=== PATIENT | male | born 1990 | race Caucasian/White ===

== ENCOUNTER 2018-07-17 17:20 | Emergency (ER) | payer SELFPAY ==
[2018-07-17 17:29] VITALS: BP 144/101; PULSE 80; RESP 18; TEMP 36.4; O2SAT 95; BMI 31.8
--- NOTE | 2018-07-17 17:48 | HMH.EDGENADL ---
ED Disposition Clinical Impression: Chest wall pain, Right upper quadrant pain Disposition: Home, Self-Care Condition on Discharge: Good Instructions: DI for Abdominal Pain-Adult Additional Instructions: Follow-up with your primary care provider for an outpatient gallbladder ultrasound. Ibuprofen or Aleve for pain. Additional instructions regarding BLOOD PRESSURE: One or more of your blood pressure readings elevated today. Please contact your primary care physician for further evaluation or treatment of your blood pressure. Referrals: Provider,Referral, [Referring] - - Critical Care Critical Care Time: No Attestation: On , the high probability of a clinically significant, sudden or life threatening deterioration of the following system(s) required my full and direct attention, intervention and personal management. The time I documented below is in addition to time spent performing reported procedures but includes the following listed in this critical care notation. Medical Decision Making - Nick Inquiry Pt receiving controlled substance: No Nick was queried for this patient: Yes Reference #:: [id number] Comment: 1 rx for 40 oxycodone 5mg on 05/29/18 Vital Signs: 07/17/18 17:29 07/17/18 19:04 Temperature 97.5 F L Temperature Source Oral Pulse Rate [Right Apical] 80 78 Respiratory Rate 18 Blood Pressure [Right Arm] 144/101 H 133/96 H Blood Pressure Mean [Right Arm] 115 108 02 Sat by Pulse Oximetry 95 96 Oxygen Delivery Method Room Air - Lab Data Lab Results 07/17/18 16:40: WBC 8.1, RBC 5.77, Hgb 17.1, Hct 49.7, MCV 86.2, MCH 29.6, MCHC 34.3, RDW 12.7, Plt Count 242, MPV 6.8 L, Neut % (Auto) 68.2, Lymph % (Auto) 23.0, [place] % (Auto) 6.1, Eos % (Auto) 2.0, Baso % (Auto) 0.7, Neut # (Auto) 5.5, Lymph # (Auto) 1.9, [place] # (Auto) 0.5, Eos # (Auto) 0.2, Baso # (Auto) 0.1 07/17/18 16:40: Sodium 135 L, Potassium 3.8, Chloride 100, Carbon Dioxide 28, Anion Gap 10.8, BUN 12, Creatinine 1.16, Estimated Creat Clear 137, Estimated GFR 74, Est GFR ( Amer) 90, Glucose 95, Calcium 9.0, Total Bilirubin 0.7, AST 64 H, ALT 172 H, Alkaline Phosphatase 74, Total Protein 8.0, Albumin 4.2, Globulin 3.8 H, Albumin/Globulin Ratio 1.1 07/17/18 16:40: D-Dimer < 100 07/17/18 16:40: Lipase 65 L Result diagrams: 07/17/18 16:40 07/17/18 16:40 Orders (Tests/Meds): ORDERS Category Date Time Status Chest XR 2 view (NOT portable) [XR chest 2V] Stat Exams 07/17/18 18:02 Taken - Radiology Data #1 Image(s): Chest Image Reviewed: Yes I reviewed the patient's radiology image Preliminary Findings: Normal/NAD General Adult HPI - General Chief complaint: Abdominal Pain Stated complaint: Right Side Pain below rib cage Time Seen by Provider: 07/17/18 17:48 Mode of Arrival: Ambulatory Limitations: No Limitations Description of Symptoms (Recalled from ER Triage Doc. by RN): PT arrived to the ED with c/o RT rib/abdominal pain since labrym surgery in may. PT states he has a hx of liver problems and is worried about that. - History of Present Illness HPI narrative: Complains of pain in his right lateral and anterior costal margin that began after he had right shoulder surgery as an outpatient on 05/29/2018. States that also since surgery his chronic abdominal problems, which consist of bloating, loose stool, and diarrhea for the past 2 years, have worsened. Normally he can control his abdominal symptoms with probiotics, but now cannot. He has never had gallbladder testing to his knowledge. He says he does have a history of a fatty liver and elevated liver enzymes. He is concerned about his liver because of this past history. He says he gets short of breath when he bends over to tie his shoes. Sometimes has increased pain in the right costal margin with breath. No fever or cough. No vomiting. He is getting physical therapy for his shoulder, he says his physical therapist thinks that it is a muscula
[2018-07-17 17:53] LABS: Basophils # 0.1 K/mm3 (0-0.2); Basophils % 0.7 % (0.1-2.0); Eosinophils # 0.2 K/mm3 (0.0-0.4); Hematocrit 49.7 % (42.0-52.0); Hemoglobin 17.1 g/dL (14.1-18.0); Lymphocytes # 1.9 K/mm3 (0.7-4.5); Mean Corpuscular HGB Conc 34.3 g/dL (31.8-35.4); Mean Corpuscular Hemoglobin 29.6 pg (27.0-31.2); Mean Corpuscular Volume 86.2 fl (80-94); Mean Platelet Volume 6.8 fl (7.4-10.4); Monocytes # 0.5 K/mm3 (0.1-1.0); Monocytes % 6.1 % (1.7-9.3); Neutrophils # 5.5 K/mm3 (1.8-7.8); Neutrophils % 68.2 % (37.0-80.0); Platelet Count 242 K/mm3 (142-424); Red Blood Count 5.77 M/mm3 (4.60-6.20); Red Cell Distribution Width 12.7 % (11.5-17.5); White Blood Count 8.1 K/mm3 (4.8-10.8)
[2018-07-17 18:01] LABS: Alanine Aminotransferase 172 U/L (12-78); Albumin Level 4.2 gm/dL (3.4-5.0); Albumin/Globulin Ratio 1.1 (1.1-1.8); Alkaline Phosphatase 74 U/L (46-116); Anion Gap 10.8 mEq/L (5-15); Aspartate Amino Transferase 64 U/L (15-37); Bilirubin,Total 0.7 mg/dL (0.2-1.0); Blood Urea Nitrogen 12 mg/dL (7-18); Carbon Dioxide 28 mmol/L (21.0-32.0); Chloride 100 mmol/L (98-107); Creatinine Clearance Estimated 137 mL/min (50-200); Creatinine,Serum 1.16 mg/dL (0.70-1.30); Estimated Glomerular Filt Rate 74 ml/min (>60); GFR (African American) 90 ML/MIN (>60); Globulin 3.8 gm/dl (1.3-3.2); Glucose 95 mg/dL (74-106); Potassium 3.8 mmoL/L (3.5-5.1); Sodium 135 mmol/L (136-145)
--- NOTE | 2018-07-17 18:02 | XR_ITS ---
XR chest 2V HISTORY: ITS.REASON: R costal margin pain ORDERING PHYSICIAN: Raymond Hathaway MD PATIENT AGE: 28 years COMPARISON: PA and lateral chest 10/22/2010 FINDINGS: The cardiomediastinal silhouette and pulmonary vascularity are within normal limits. The lungs are clear without infiltrates, suspicious nodules, or pleural effusions. No acute bony abnormalities. IMPRESSION: Negative chest, no acute finding
[2018-07-17 18:30] LABS: D-Dimer < 100 ng/mL (0-400)
[2018-07-17 18:47] LABS: Lipase 65 u/L (73-393)
[2018-07-17 19:04] VITALS: BP 133/96; PULSE 78; O2SAT 96
[2018-07-17 20:16] VITALS: BP 135/93; PULSE 79; RESP 18; TEMP 36.6; O2SAT 96
== END 2018-07-17 20:15 | disposition home or self-care (01) ==
PROVIDERS: Emergency Provider Emergency Medicine; PCP Physician Assistant
DX: R07.89 Other chest pain (principal); R10.11 Right upper quadrant pain
CPT/HCPCS: 71046; 80053; 83690; 85025; 85378; 99283

== ENCOUNTER → 2019-04-06 13:31 | Outpatient (CLI) | payer BC, SELFPAY ==
--- NOTE | 2019-04-06 13:35 | ECG_ITS ---
APPROVED REPORT Exam: Resting ECG HR:56 bpm ECG Measurements Heart Rate 56 AXES ME 158 P 26 QRSd 114 QRS -25 QT 404 T 1 QTc 389 <Conclusion> Sinus bradycardia Moderate voltage criteria for LVH, may be normal variant Borderline ECG Electronically signed by : Castro Gaines, 04/06/2019 20:56:19
[2019-04-06 15:18] LABS: C-Reactive Protein < 0.2 mg/dL (0.0-0.9); Cholesterol 170 mg/dL (140-200); HDL Cholesterol 42 mg/dL (27-67); LDL Cholesterol 115 mg/dL (0-130); Thyroid Stimulating Hormone 1.76 uIU/ml (0.358-3.740); Triglycerides 63 mg/dL (30-200); VLDL Cholesterol 13 mg/dL (0-40)
[2019-04-06 16:05] LABS: Erythrocyte Sedimentation Rate 4 mm/hr (0-15)
== END ==
PROVIDERS: PCP Emergency Medicine; Visit Provider Nurse Practitioner Family
DX: M54.9 Dorsalgia, unspecified (principal); R07.9 Chest pain, unspecified; R12 Heartburn
CPT/HCPCS: 36415; 80061; 82652; 84439; 84443; 85651; 86140; 93005

== ENCOUNTER → 2019-04-27 12:45 | Outpatient (CLI) | payer BC, SELFPAY ==
--- NOTE | 2019-04-27 12:46 | CA_ITS ---
APPROVED REPORT EXAM: Comprehensive 2D, Doppler, and color-flow Echocardiogram Distribution Agent: Kendra Caicedo RT(R) Ht: 5 ft 11 in Wt: 229lbs BSA: 2.23 BP: 151/73 mmHg Indications: SOA, CP, Hyperlipidemia 2D Dimensions LVOT 2.18 cm (M/F) 1.5-2.5 M-Mode Dimensions RVDd 3.05 cm (0.9-2.6) LVDd 5.11 cm (3.5-5.7) LVDs 3.74 cm (3.5-5.7) IVSd 0.76 cm (0.6-1.1) PWd 0.76 cm (0.6-1.1) EF (Teich) 52.10% FS 26.80% EDV (Teich) 124.40 mL ESV (Teich) 59.60 mL LV Diastology E/A Ratio 2.22 Mitral Valve MV A Velocity 39.00 (40-130 cm/s) Left Ventricle Left atrium is normal size, left ventricle is normal size, there is no concentric left ventricular hypertrophy, visually estimated ejection fraction 55% with no regional wall motion abnormality, diastolic parameters are within normal limits. Right Ventricle Right atrium right ventricular normal size and contractility. Aortic Valve Aortic valve is normal, there is no aortic stenosis aortic insufficiency. Mitral Valve Mitral valve is grossly normal. There is trace mitral regurgitation. Tricuspid Valve Tricuspid valve grossly normal, there is mild tricuspid regurgitation, calculated right ventricular systolic pressure is within normal range. Pulmonic Valve Pulmonic valve is poorly visualized. Great Vessels Aortic root is normal size. Pericardium No significant pericardial effusion noted. Conclusion 1. Normal left ventricular size, preserved left ventricular systolic function, visually estimated ejection fraction 55% with no regional wall motion abnormality, diastolic parameters are within normal range. 2. Mild mitral and tricuspid regurgitation. Calculated right ventricular systolic pressure is within normal range. 3. No significant pericardial effusion noted. Electronically signed by : Geo Starkey, 04/27/2019 20:42:55
--- NOTE | 2019-04-27 13:19 | CT_ITS ---
PROCEDURE: CT CHEST W CON CLINCAL INDICATION: cp/dyspnea Chest pain and dyspnea, pain between the scapula with shortness of air COMPARISON: ABDPELW/WO CT ABD PELVIS W/WO CONTRAST from 10/25/2015 CT ABDOMEN PELVIS W CON from 11/21/2018 TECHNIQUE: IV Contrast: 75ml Optiray 350 Axial images obtained with sagittal and coronal reformats. All CT scans at the facility use one or more dose reduction, viz: automated exposure control, ma/kV adjustment per patient size (including targeted exams where dose is matched to indication, i.e. head), or iterative reconstruction technique. FINDINGS: HEART,AORTA,PULMONARY ARTERIES Unremarkable. MEDIASTINAL AND HILAR STRUCTURES: No mediastinal or hilar mass evident. No dominant adenopathy. LUNGS: Unremarkable. No mass or consolidation. PLEURAL SPACES: No significant effusion. No evidence of pneumothorax. BONY STRUCTURES: No acute bony abnormalities apparent. LYMPH NODES: No enlarged lymph nodes evident. UPPER ABDOMEN: There is diffuse fatty liver infiltration. There is mild splenomegaly at 14 cm. There is scarring of the upper pole of the right kidney laterally. ADDITIONAL FINDINGS: No other significant abnormalities. IMPRESSION: 1. Negative CT scan of the chest. 2. Fatty liver with mild splenomegaly and scarring of the upper pole of the right kidney Dictated by: Pilo Valdez MD 04/27/2019 17:26 Electronically signed by Pilo Valdez MD in [facility] 04/27/2019 17:26
== END ==
PROVIDERS: PCP Emergency Medicine; Visit Provider Nurse Practitioner Family
DX: I71.00 Dissection of unspecified site of aorta (principal); R06.00 Dyspnea, unspecified; R07.9 Chest pain, unspecified; R94.31 Abnormal electrocardiogram [ECG] [EKG]
CPT/HCPCS: 71260; 93306; Q9967

== ENCOUNTER → 2020-04-06 16:58 | Outpatient (CLI) | payer BC, SELFPAY | PROVIDERS: PCP Physician Assistant; Visit Provider Physician Assistant | DX: Z03.818 Encounter for observation for suspected exposure to other biological agents ruled out (principal) | CPT/HCPCS: U0003 ==

== ENCOUNTER 2020-05-23 12:31 | Emergency (ER) | payer BC, SELFPAY ==
[2020-05-23 12:32] VITALS: BP 112/75; PULSE 72; RESP 16; TEMP 36.6; O2SAT 98; BMI 31.4
--- NOTE | 2020-05-23 12:55 | CT_ITS ---
PROCEDURE: CT THORACIC SPINE WO CON CLINICAL HISTORY: fall Posttraumatic pain, back pain COMPARISON: No exams were available for comparison TECHNIQUE: Axial images obtained with sagittal and coronal reformats. All CT scans at the facility use one or more dose reduction, viz: automated exposure control, ma/kV adjustment per patient size (including targeted exams where dose is matched to indication, i.e. head), or iterative reconstruction technique. FINDINGS: Normal alignment. No acute fracture or dislocation. Mild degenerative disc disease T4-T5 with small anterior osteophytes. IMPRESSION: No acute finding Dictated by: Pilo Valdez MD 05/23/2020 13:40 Pilo Valdez MD in [facility] 05/23/2020 13:40
--- NOTE | 2020-05-23 12:55 | CT_ITS ---
PROCEDURE: CT CERVICAL SPINE WO CON CLINICAL INDICATION: fall Neck injury with pain, contusion/abrasion or hematoma, cervical sprain/strain the COMPARISON: No exams were available for comparison TECHNIQUE: Axial images obtained with sagittal and coronal reformats. All CT scans at the facility use one or more dose reduction, viz: automated exposure control, ma/kV adjustment per patient size (including targeted exams where dose is matched to indication, i.e. head), or iterative reconstruction technique. Axial spiral CT scanning performed of the cervical spine beginning at the base of the skull and continuing to the upper T-spine. 3-D multiplanar reconstruction with 3-D manipulation of volumetric data set in image rendering was completed by the radiologist and/or technologist with the supervision of the radiologist on independent workstation. FINDINGS: There is normal alignment. No acute fracture or dislocation. C2-C3: Unremarkable. C3-C4: Unremarkable. C4-C5: Small central disc protrusion. C5-C6: Mild degenerative disc disease with endplate ridging slightly eccentric toward the right. C6-C7: Mild degenerative disc disease with small left paracentral disc osteophyte complex the. Scattered small nodes are present in the neck. Lung apices are clear. IMPRESSION: 1. No acute fracture. 2. C4-C5: Small central disc protrusion. 3. C5-C6: Mild degenerative disc disease with endplate ridging slightly eccentric toward the right. 4. C6-C7: Mild degenerative disc disease with small left paracentral disc osteophyte complex Dictated by: Pilo Valdez MD 05/23/2020 13:36 Pilo Valdez MD in [facility] 05/23/2020 13:36
--- NOTE | 2020-05-23 13:37 | HMH.EDGENADL ---
ED Disposition Clinical Impression: Strain of thoracic spine, Degenerative disc disease, cervical Cervical strain, acute Qualifiers: Encounter type: initial encounter Qualified Code(s): S16.1XXA - Strain of muscle, fascia and tendon at neck level, initial encounter Disposition: Home, Self-Care Condition on Discharge: Good Instructions: DI for Neck Sprain, DI for Degenerative Disc Disease, DI for Thoracic Back Pain Additional Instructions: Ibuprofen for pain. Apply heat 20 to 30 minutes 3 times a day as needed. Follow-up with your primary care doctor if not improved in 4 to 5 days. Referrals: Belkis Sharp PA [Primary Care Provider] - - Critical Care Critical Care Time: No Attestation: On 05/23/20, the high probability of a clinically significant, sudden or life threatening deterioration of the following system(s) required my full and direct attention, intervention and personal management. The time I documented below is in addition to time spent performing reported procedures but includes the following listed in this critical care notation. Medical Decision Making - Nick Inquiry Pt receiving controlled substance: No Vital Signs: 05/23/20 12:32 Temperature 97.9 F Temperature Source Oral Pulse Rate [Left Radial] 72 Respiratory Rate 16 Blood Pressure [Left Arm] 112/75 Blood Pressure Mean [Left Arm] 87 Blood Pressure Source [Left Arm] Automatic Cuff Blood Pressure Position [Left Arm] Sitting 02 Sat by Pulse Oximetry 98 Oxygen Delivery Method Room Air - CT Data CT Scan: C-Spine, T-Spine Time Received: 13:[address] Reviewed: Yes: I have viewed the radiologist's interpretation Findings Narrative: PROCEDURE: CT THORACIC SPINE WO CON CLINICAL HISTORY: fall Posttraumatic pain, back pain COMPARISON: No exams were available for comparison TECHNIQUE: Axial images obtained with sagittal and coronal reformats. All CT scans at the facility use one or more dose reduction, viz: automated exposure control, ma/kV adjustment per patient size (including targeted exams where dose is matched to indication, i.e. head), or iterative reconstruction technique. FINDINGS: Normal alignment. No acute fracture or dislocation. Mild degenerative disc disease T4-T5 with small anterior osteophytes. IMPRESSION: No acute finding Dictated by: Pilo Valdez MD 05/23/2020 13:40 Pilo Valdez MD in [facility] 05/23/2020 13:40 PROCEDURE: CT CERVICAL SPINE WO CON CLINICAL INDICATION: fall Neck injury with pain, contusion/abrasion or hematoma, cervical sprain/strain the COMPARISON: No exams were available for comparison TECHNIQUE: Axial images obtained with sagittal and coronal reformats. All CT scans at the facility use one or more dose reduction, viz: automated exposure control, ma/kV adjustment per patient size (including targeted exams where dose is matched to indication, i.e. head), or iterative reconstruction technique. Axial spiral CT scanning performed of the cervical spine beginning at the base of the skull and continuing to the upper T-spine. 3-D multiplanar reconstruction with 3-D manipulation of volumetric data set in image rendering was completed by the radiologist and/or technologist with the supervision of the radiologist on independent workstation. FINDINGS: There is normal alignment. No acute fracture or dislocation. C2-C3: Unremarkable. C3-C4: Unremarkable. C4-C5: Small central disc protrusion. C5-C6: Mild degenerative disc disease with endplate ridging slightly eccentric toward the right. C6-C7: Mild degenerative disc disease with small left paracentral disc osteophyte complex the. Scattered small nodes are present in the neck. Lung apices are clear. IMPRESSION: 1. No acute fracture. 2. C4-C5: Small central disc protrusion. 3. C5-C6: Mild degenerative disc disease with endplate ridging slightly eccentric toward the right. 4. C6-C7: Mild
[2020-05-23 14:05] VITALS: BP 115/70; PULSE 78; RESP 16; TEMP 37; O2SAT 98
== END 2020-05-23 14:07 | disposition home or self-care (01) ==
PROVIDERS: Emergency Provider Emergency Medicine; PCP Physician Assistant
DX: S29.012A Strain of muscle and tendon of back wall of thorax, initial encounter (principal); S16.1XXA Strain of muscle, fascia and tendon at neck level, initial encounter; W00.0XXA Fall on same level due to ice and snow, initial encounter; Y92.018 Other place in single-family (private) house as the place of occurrence of the external cause; K21.9 Gastro-esophageal reflux disease without esophagitis; I10 Essential (primary) hypertension; Z88.0 Allergy status to penicillin; Z79.899 Other long term (current) drug therapy
CPT/HCPCS: 72125; 72128; 99282

== ENCOUNTER 2020-11-22 10:41 | Emergency (ER) | payer BC, SELFPAY ==
[2020-11-22 12:16] VITALS: BP 139/91; PULSE 67; RESP 16; TEMP 36.7; O2SAT 100; BMI 31.4
--- NOTE | 2020-11-22 12:19 | HMH.EDUTC ---
[facility] [place] [facility] [place] Clinical Impression: Exposure to COVID-19 virus Disposition: Home, Self-Care Condition on Discharge: Good Instructions: DI for COVID-19 (Suspected or Confirmed ), Coronavirus Disease 2019, Preventing the Spread of Coronavirus Discharge Instructions Additional Instructions: *Monitor Temp, Over the counter Motrin or Tylenol as directed/as needed Tylenol every 4 hours and Motrin every 6 hours (as long as your family doctor has told you that you can take it) for fever or pain. and straight to ER if unable to lower temp less than 101.0 after medication given Follow up IMMEDIATELY for new or worsening symptoms or no Noticeable improvement over the next 48-72 hours. 911 for difficulty breathing or swallowing You were tested for today for COVID19 your test result should be back in the next 24-48 hours, you may call to the [facility] to see if your test results are back in the next 48 hours [phone] [facility] hours are 9am-9pm You was given a handout with instructions for Self Quarantine and Self isolation for while you wait on test results and what to do if they are positive If you are positive the Health Dept will be contacting you also Make sure to take your Vitamins Vit. C Vit D and Zinc if you can take them Referrals: Belkis Sharp PA [Primary Care Provider] - As needed Forms: Work/School Release Time of Disposition: 12:33 Medical Decision Making - Nick Inquiry Pt receiving controlled substance: No Nick was queried for this patient: No Vital Signs: 11/22/20 12:16 Temperature 98.1 F Temperature Source Oral Pulse Rate [Left] 67 Respiratory Rate 16 Blood Pressure [Right Arm] 139/91 H Blood Pressure Mean [Right Arm] 107 02 Sat by Pulse Oximetry 100 Orders (Tests/Meds): ORDERS Category Date Time Status Covid-19 Nasal PCR ([facility]) Routine Lab 11/22/20 12:03 Received [facility] [place] [facility] [place] HPI - General Stated complaint: covid exposure Time Seen by Provider: 11/22/20 12:20 Mode of Arrival: Ambulatory Source of Information: Patient Limitations: No Limitations Description of Symptoms (Recalled from Triage Doc. by RN): pt was exposed to covid at work and needs a test. HEENT Symptoms (Recalled from RN notes): No Resp Symptoms (Recalled from RN notes): No Skin Symptoms (Recalled from RN notes): No MS Symptoms (Recalled from RN notes): No Functional Status (Recalled from RN notes): na - History of Present Illness Provider Complaint: Patient state that he was exposed to several people last week that has tested positive for COVID States that he has had a little throat irritation and just feeling blah so they wanted him to come in and get tested for COVID - Related Data Home Medications Medication Instructions Recorded Confirmed lactobacillus combination no.8 3 3,000 mmu cells PO DAILY 04/15/19 09/15/20 billion cell capsule Previous Rx's Medication Instructions Recorded ergocalciferol (vitamin D2) 1,250 50,000 unit PO QWEEK #4 cap 04/09/19 mcg (50,000 unit) capsule omeprazole 40 mg capsule,delayed 40 mg PO DAILY #90 cap 04/15/19 release amoxicillin 500 mg tablet 500 mg PO BID 10 Days #20 tab 09/15/20 cetirizine 10 mg tablet 10 mg PO DAILY #30 tab 09/15/20 Allergies Allergy/AdvReac Type Severity Reaction Status Date / Time cefaclor [From Ceclor] Allergy Mild Verified 11/22/20 12:20 cefprozil [From Cefzil] Allergy Mild Verified 11/22/20 12:20 Penicillins Allergy Mild Verified 11/22/20 12:20 - Worker's Comp Is this a Worker's Comp case?: No [facility] History - Hepatitis A Screen Drug use history?: No High risk sexual behaviors?: No History of sexually transmitted infection?: No Currently employed?: No Childcare worker?: No Do you have indoor plumbing?: Yes Do you have electricity?: Yes Attestation statement:: This patient has been screened for Hepatitis A risk factors. I have reviewed the patient's past medical history: Yes Medical History: Reports:: Gastroesophageal R
[2020-11-22 12:56] VITALS: BP 0/0; PULSE 69; RESP 16; TEMP 36.8
== END 2020-11-22 12:56 | disposition home or self-care (01) ==
PROVIDERS: Emergency Provider Nurse Practitioner; PCP Physician Assistant
DX: Z20.822 Contact with and (suspected) exposure to COVID-19 (principal); I10 Essential (primary) hypertension; K21.9 Gastro-esophageal reflux disease without esophagitis
CPT/HCPCS: 99202; G0463; U0003

== ENCOUNTER → 2020-12-12 18:35 | Outpatient (CLI) | payer OTHER, SELFPAY | PROVIDERS: Visit Provider Physician Assistant | DX: Z20.822 Contact with and (suspected) exposure to COVID-19 (principal) | CPT/HCPCS: C9803; U0003; U0005 ==

== ENCOUNTER → 2020-12-25 17:45 | Outpatient (CLI) | payer OTHER, SELFPAY | PROVIDERS: Visit Provider Nurse Practitioner Family | DX: Z20.822 Contact with and (suspected) exposure to COVID-19 (principal); J02.9 Acute pharyngitis, unspecified | CPT/HCPCS: C9803; U0003; U0005 ==

== ENCOUNTER → 2020-12-28 10:04 | Outpatient (CLI) | payer SELFPAY ==
[2020-12-28 10:26] LABS: Adenovirus,PCR Not Detected (NotDetected); Bordetella Pertussis Not Detected (NotDetected); Chlamydophila Pneumoniae, PCR Not Detected (NotDetected); Coronavirus 19, PCR Not Detected (NotDetected); Coronavirus 229E Not Detected (NotDetected); Coronavirus NL63 Not Detected (NotDetected); Coronavirus OC43 Not Detected (NotDetected); Coronovirus HKU1,PCR Not Detected (NotDetected); Human Metapneumovirus Not Detected (NotDetected); Influenza A, PCR Not Detected (NotDetected); Influenza AH1, 2009 Not Detected (NotDetected); Influenza AH1, PCR Not Detected (NotDetected); Influenza AH3,PCR Not Detected (NotDetected); Influenza B, PCR Not Detected (NotDetected); Mycoplasma Pneumoniae, PCR Not Detected (NotDetected); Parainfluenza 1, PCR Not Detected (NotDetected); Parainfluenza 2, PCR Not Detected (NotDetected); Parainfluenza 3, PCR Not Detected (NotDetected); Parainfluenza 4, PCR Not Detected (NotDetected); Rhinovirus/Enterovirus Not Detected (NotDetected)
[2020-12-28 15:35] LABS: Respiratory Syncytial Virus Detected (NotDetected)
== END ==
PROVIDERS: PCP Nurse Practitioner Family; Visit Provider Nurse Practitioner Family
DX: Z20.822 Contact with and (suspected) exposure to COVID-19 (principal); B97.4 Respiratory syncytial virus as the cause of diseases classified elsewhere; J02.9 Acute pharyngitis, unspecified
CPT/HCPCS: 87581; 87632; 87798; C9803; U0003; U0005

== ENCOUNTER → 2021-04-07 11:22 | Outpatient (CLI) | payer OTHER, SELFPAY | PROVIDERS: PCP Physician Assistant; Visit Provider Nurse Practitioner | DX: Z20.822 Contact with and (suspected) exposure to COVID-19 (principal) | CPT/HCPCS: C9803; U0003; U0005 ==

== ENCOUNTER → 2021-04-11 11:12 | Outpatient (CLI) | payer OTHER, SELFPAY | PROVIDERS: Visit Provider Nurse Practitioner | DX: U07.1 COVID-19 (principal) | CPT/HCPCS: C9803; U0003; U0005 ==

== ENCOUNTER 2021-10-12 11:59 | Emergency (ER) | payer BC, SELFPAY ==
--- NOTE | 2021-10-12 12:04 | XR_ITS ---
FINAL REPORT CLINICAL HISTORY: pain started 3 days ago FINDINGS: 3 views of the right shoulder were obtained. There is no acute fracture or dislocation. The joint spaces are intact. There are no soft tissue abnormalities. IMPRESSION: No acute process. Reviewed, Interpreted and Dictated by Lowell Alcocer MD Transcribed by Luis E Griffith Authenticated and [facility]
[2021-10-12 12:25] VITALS: BP 139/94; PULSE 61; RESP 16; TEMP 36.4; O2SAT 99; BMI 30.7
--- NOTE | 2021-10-12 12:47 | HMH.EDUTC ---
[facility] [place] Disposition Clinical Impression: shoulder Right shoulder pain Qualifiers: Chronicity: acute Qualified Code(s): M25.511 - Pain in right shoulder Concussion Qualifiers: Encounter type: initial encounter Loss of consciousness presence/duration: without LOC Qualified Code(s): S06.0X0A - Concussion without loss of consciousness, initial encounter Disposition: Home, Self-Care Condition on Discharge: Good Instructions: DI for Concussion, Shoulder Sprain, Concussion, DI for AC Joint Separation Additional Instructions: Rest the extremity. Take tylenol for pain. Follow up with Dr. Weinstein (orthopedics) or your orthopedist of choice regarding your shoulder. I put in a referral but you need to call his office and schedule an appointment. Follow up with your regular doctor. GO TO THE ER FOR ANY WORSENING SYMPTOMS Referrals: Provider,MD Luis [Primary Care Provider] - Landon Weinstein MD [Staff Physician] - Forms: Work/School Release Time of Disposition: 12:51 Medical Decision Making - Medical Records Medical records reviewed: No: I reviewed the patient's medical records. - Nick Inquiry Pt receiving controlled substance: No Vital Signs: 10/12/21 12:25 10/12/21 13:04 Temperature 97.6 F 97.6 F Temperature Source Oral Pulse Rate 61 Pulse Rate [Left] 61 Respiratory Rate 16 16 Blood Pressure 139/94 H Blood Pressure [Right Arm] 139/94 H Blood Pressure Mean [Right Arm] 109 02 Sat by Pulse Oximetry 99 - Lab Data Lab results reviewed: Yes: I reviewed the patient's lab results. - Radiology Data #1 Image(s): Shoulder Image Reviewed: Yes I reviewed the patient's radiology image, Yes I have reviewed radiologist's interpretation Preliminary Findings: No Fracture Seen FINAL REPORT CLINICAL HISTORY: pain started 3 days ago FINDINGS: 3 views of the right shoulder were obtained. There is no acute fracture or dislocation. The joint spaces are intact. There are no soft tissue abnormalities. IMPRESSION: No acute process. Reviewed, Interpreted and Dictated by Lowell Alcocer MD Transcribed by Luis E Griffith Authenticated and [facility] HPI - General Stated complaint: ao 10/10, h/a, right shoulder pain Time Seen by Provider: 10/12/21 12:47 Description of Symptoms (Recalled from Triage Doc. by RN): patient comes in for headache. patient was mowing 2 days ago and ran into a tree branch. patient states that he has had a headache since then. HEENT Symptoms (Recalled from RN notes): Yes Resp Symptoms (Recalled from RN notes): No Skin Symptoms (Recalled from RN notes): No MS Symptoms (Recalled from RN notes): No Functional Status (Recalled from RN notes): n/a - History of Present Illness Provider Complaint: He was mowing when when he bumped his head on a low tree branch. This pushed him back and caused him to start having right shoulder pain. He has also had a headache for the past 2 days since the incident. - Related Data Home Medications Medication Instructions Recorded Confirmed lactobacillus combination no.8 3 3,000 mmu cells PO DAILY 04/15/19 12/25/20 billion cell capsule Previous Rx's Medication Instructions Recorded ergocalciferol (vitamin D2) 1,250 50,000 unit PO QWEEK #4 cap 04/09/19 mcg (50,000 unit) capsule omeprazole 40 mg capsule,delayed 40 mg PO DAILY #90 cap 04/15/19 release azithromycin 250 mg tablet 250 mg PO QDAY 5 Days #6 tab 12/26/20 Allergies Allergy/AdvReac Type Severity Reaction Status Date / Time cefaclor [From Ceclor] Allergy Mild Verified 10/12/21 12:27 cefprozil [From Cefzil] Allergy Mild Verified 10/12/21 12:27 Penicillins Allergy Mild Verified 10/12/21 12:27 - Worker's Comp Is this a Worker's Comp case?: No [facility] History - Hepatitis A Screen Attestation statement:: This patient has been screened for Hepatitis A risk
[2021-10-12 13:04] VITALS: BP 139/94; PULSE 61; RESP 16; TEMP 36.4
== END 2021-10-12 13:05 | disposition home or self-care (01) ==
PROVIDERS: Emergency Provider Nurse Practitioner Family
DX: S43.004A Unspecified dislocation of right shoulder joint, initial encounter (principal); S06.0X0A Concussion without loss of consciousness, initial encounter; Y93.H2 Activity, gardening and landscaping; Y92.096 Garden or yard of other non-institutional residence as the place of occurrence of the external cause
CPT/HCPCS: 73030; 99212; G0463

== ENCOUNTER 2022-02-19 08:50 | Emergency (ER) | payer BC, SELFPAY ==
[2022-02-19 09:00] VITALS: BP 136/84; PULSE 76; RESP 21; TEMP 37.1; O2SAT 97; BMI 31.6
--- NOTE | 2022-02-19 09:17 | EXP.UTC ---
Discharge Plan Disposition Patient Disposition: Home, Self-Care Condition: Good Prescriptions Prescriptions: New methylprednisolone [Medrol (Peter)] 4 mg tablets,dose pack See Rx Instructions .Route .COMPLEX 6 Days Qty: 21 0RF Rx Instructions: taper pack; guaifenesin [Mucinex] 600 mg tablet extended release 12hr 600 mg PO BID PRN (Reason: cough) Qty: 20 0RF azithromycin [Zithromax Z-Peter] 250 mg tablet See Rx Instructions .ROUTE .COMPLEX 5 Days Qty: 6 0RF Rx Instructions: For 250 mg dose pack: take 500 mg today (day 1), then 250 mg for 4 days (days 2-5) No Action omeprazole [Prilosec] 20 mg Capsule,Delayed Release(Dr/Ec) 20 mg PO DAILY Referrals Follow up/Referrals: Belkis Sharp PA [Primary Care Provider] - See instructions Activity Restrictions/Add. Instructions Additional Instructions/Restrictions: Take medication as prescribed. [id number] Motrin and Tylenol as directed on package for fever chills and body aches. Follow-up with your family doctor if no improvement or any worsening of symptoms Straight to ER if any life-threatening symptoms Drink plenty of fluids and rest Return if needed Clinical Impressions Clinical Impression: Bronchitis Sinusitis Qualifiers: Sinusitis location: unspecified location Chronicity: unspecified Qualified Code(s): J32.9 - Chronic sinusitis, unspecified Stand Alone Forms Stand Alone Forms: Work/School Release Instructions Patient Instructions: Sinusitis, Acute Bronchitis, DI for Sinusitis Discharge ED Provider: Jennifer Frias [facility] General Stated complaint: sore throat, cough Mode of Arrival: Ambulatory Source of Information: Patient Limitations: No Limitations Time Seen by Provider: 02/19/22 09:17 Description of Symptoms (Recalled from Triage Doc. by RN): PATIENT C/O SORE THROAT, PRODUCTIVE COUGH, FEVER AND BODY ACHES THAT STARTED FRIDAY NIGHT. HE STATES HIS SON HAD FLU LAST WEEK HEENT Symptoms (Recalled from RN notes): Yes Resp Symptoms (Recalled from RN notes): Yes Skin Symptoms (Recalled from RN notes): No MS Symptoms (Recalled from RN notes): No Functional Status (Recalled from RN notes): WNL History of Present Illness Provider Complaint: Patient states that on Friday he started feeling bad with fever chills and body aches states that then he started with cough chest congestion and at times coughing up thick mucus states today he was still not feeling well having sinus pain and pressure so he came in to get checked. Related Data Home Medications Medication Instructions Recorded Confirmed omeprazole 20 mg capsule,delayed 20 mg PO DAILY GERD 02/19/22 02/19/22 release Previous Rx's Medication Instructions Recorded azithromycin 250 mg tablet See Rx Instructions PO .COMPLEX 5 02/19/22 (Zithromax Z-Peter) days #6 tabs guaifenesin 600 mg tablet, 600 mg PO BID PRN cough #20 tabs 02/19/22 extended release 12 hr (Mucinex) methylprednisolone 4 mg tablets in See Rx Instructions .Route 02/19/22 a dose pack (Medrol (Peter)) .COMPLEX 6 days #21 tabs Allergies Allergy/AdvReac Type Severity Reaction Status Date / Time cefaclor [From Ceclor] Allergy Mild Verified 10/12/21 12:27 cefprozil [From Cefzil] Allergy Mild Verified 10/12/21 12:27 Penicillins Allergy Mild Verified 10/12/21 12:27 Worker's Comp Is this a Worker's Comp case?: No [facility] Medical History (Updated 02/19/22 @ 09:27 by Jennifer Frias APRN) Anxiety Depression History of gastroesophageal reflux (GERD) Migraine Surgical History (Updated 02/19/22 @ 09:12 by Le Horton RN) History of shoulder surgery History of tonsillectomy Social History (Updated 02/19/22 @ 09:13 by Le Horton RN) Smoking Status: Never smoker alcohol intake: current substance use type: denies use current occupational status: employed Travel in the last 8 weeks: None household members: family housing: [facility]
[2022-02-19 09:28] LABS: UTC Influenza A Antigen Negative (Negative); UTC Influenza B Antigen Negative (Negative); UTC Strep Screen (Rapid) Negative (Negative)
[2022-02-19 09:34] VITALS: BP 136/84; PULSE 76; RESP 21; TEMP 37.1; O2SAT 97
== END 2022-02-19 09:35 | disposition home or self-care (01) ==
PROVIDERS: Emergency Provider Nurse Practitioner; PCP Physician Assistant
DX: J40 Bronchitis, not specified as acute or chronic (principal); J32.9 Chronic sinusitis, unspecified
CPT/HCPCS: 87804; 87880; 99212; G0463

== ENCOUNTER 2022-06-24 09:43 | Emergency (ER) | payer BC, SELFPAY ==
[2022-06-24 10:15] VITALS: BP 131/97; PULSE 75; RESP 20; TEMP 36.8; O2SAT 98; BMI 30.9
--- NOTE | 2022-06-24 10:26 | EXP.UTC ---
Discharge Plan Disposition Patient Disposition: Home, Self-Care Condition: Good Prescriptions Prescriptions: New azithromycin [Zithromax Z-Peter] 250 mg tablet See Rx Instructions .ROUTE .COMPLEX 5 Days Qty: 6 0RF Rx Instructions: For 250 mg dose pack: take 500 mg today (day 1), then 250 mg for 4 days (days 2-5) benzonatate 100 mg capsule 100 mg PO TID PRN (Reason: cough) Qty: 30 0RF methylprednisolone [Medrol (Peter)] 4 mg tablets,dose pack See Rx Instructions .Route .COMPLEX 6 Days Qty: 21 0RF Rx Instructions: taper pack; No Action omeprazole [Prilosec] 20 mg Capsule,Delayed Release(Dr/Ec) 20 mg PO DAILY Referrals Follow up/Referrals: Provider,Referral, MD [Primary Care Provider] - See instructions Activity Restrictions/Add. Instructions Additional Instructions/Restrictions: *Monitor Temp, Over the counter Motrin or Tylenol as directed/as needed Tylenol every 4 hours and Motrin every 6 hours (as long as your family doctor has told you that you can take it) for fever or pain. and straight to ER if unable to lower temp less than 101.0 after medication given *Warm salt water gargles may help to soothe the throat *Throat Lozenges? *Warm fluids like tea with honey may help to soothe the throat? *Sleep elevated *Humidifier/Vaporizer *Flonase 2 sprays in each nostril daily but be aware that it may take 2-3 days before you notice improvement *Bromfed may cause drowsiness. Know how it effects you (your child) before driving, caring for small child, or sending your child to school. Not other antihistamines/allergy medications while taking bromfed Your throat swab was sent for culture. Those results are typically sent to your primary care. Be sure to follow up in 2-3 days with your family doctor/primary care physician if no improvement so they can review those result and treat if necessary. If you don?t have a primary care doctor, I recommend you get one but in the mean time, you will have to return to a walk in clinic Follow up IMMEDIATELY for new or worsening symptoms or no Noticeable improvement over the next 48-72 hours. 911 for difficulty breathing or swallowing Clinical Impressions Clinical Impression: Pharyngitis Stand Alone Forms Stand Alone Forms: Work/School Release Instructions Patient Instructions: Sore Throat, Cough Discharge ED Provider: [place] [facility] [place] General Stated complaint: Sore throat, congestion Time Seen by Provider: 06/24/22 10:26 History of Present Illness Provider Complaint: Patient states that he has been having sore throat, nasal congestion, cough, body aches and chills States that his child had the flu and his and other kids had strep throat now he is not feeling well so he came in to get checked States that sore throat has got worse over the last few days Related Data Home Medications Medication Instructions Recorded Confirmed omeprazole 20 mg capsule,delayed 20 mg PO DAILY GERD 02/19/22 06/24/22 release Previous Rx's Medication Instructions Recorded azithromycin 250 mg tablet See Rx Instructions PO .COMPLEX 5 06/24/22 (Zithromax Z-Peter) days #6 tabs benzonatate 100 mg capsule 100 mg PO TID PRN cough #30 caps 06/24/22 methylprednisolone 4 mg tablets in See Rx Instructions .Route 06/24/22 a dose pack (Medrol (Peter)) .COMPLEX 6 days #21 tabs Allergies Allergy/AdvReac Type Severity Reaction Status Date / Time cefaclor [From Ceclor] Allergy Mild Verified 06/24/22 10:37 cefprozil [From Cefzil] Allergy Mild Verified 06/24/22 10:37 Penicillins Allergy Mild Verified 06/24/22 10:37 [facility] Disclaimer: The information contained in this section may have been updated after the patient was seen, as this information can be updated by other users. Medical History (Updated 06/24/22 @ 10:54 by Jennifer Frias, [employer]) Anxiety Depression History of gastroesophageal reflux (GERD) Migraine Surgical H
[2022-06-24 10:57] LABS: UTC Strep Screen (Rapid) Negative (Negative)
[2022-06-24 10:58] LABS: UTC Influenza A Antigen Negative (Negative); UTC Influenza B Antigen Negative (Negative)
[2022-06-24 11:13] VITALS: BP 131/97; PULSE 75; RESP 20; TEMP 36.6; O2SAT 98
== END 2022-06-24 11:13 | disposition home or self-care (01) ==
PROVIDERS: Emergency Provider Nurse Practitioner
DX: J02.9 Acute pharyngitis, unspecified (principal); R05.1 Acute cough
CPT/HCPCS: 87804; 87880; 99212; 99214; G0463

== ENCOUNTER → 2022-09-17 19:06 | Outpatient (CLI) | payer BC, SELFPAY ==
[2022-09-17 20:08] LABS: Basophils # 0.1 K/mm3 (0-0.2); Basophils % 0.6 % (0.1-2.0); Eosinophils # 0.1 K/mm3 (0.0-0.4); Eosinophils % 1.7 % (0.1-12.0); Hematocrit 47.4 % (42.0-52.0); Hemoglobin 16.1 g/dL (14.1-18.0); Lymphocytes # 2.2 K/mm3 (0.7-4.5); Lymphocytes % 28.1 % (10-50); Mean Corpuscular Hemoglobin 29.9 pg (27.0-31.2); Monocytes # 0.5 K/mm3 (0.1-1.0); Monocytes % 5.8 % (1.7-9.3); Neutrophils % 63.7 % (37.0-80.0); Platelet Count 195 K/mm3 (142-424); Red Blood Count 5.39 M/mm3 (4.60-6.20); White Blood Count 7.8 K/mm3 (4.8-10.8)
[2022-09-17 20:29] LABS: Alanine Aminotransferase 82 U/L (12-78); Albumin Level 4.4 g/dl (3.5-5.0); Albumin/Globulin Ratio 1.7 (1.1-1.8); Alkaline Phosphatase 112 U/L (38-126); Anion Gap 17.1 mEq/L (5-15); Aspartate Amino Transferase 51 U/L (17-59); Bilirubin,Total 0.4 mg/dl (0.2-1.3); Blood Urea Nitrogen 14 mg/dl (9-20); Carbon Dioxide 26 mmol/L (22.0-30.0); Chloride 100 mmol/L (98-107); Chol/HDL Ratio 4.3 (1-3.5); Cholesterol 168 mg/dl (140-200); Estimated Glomerular Filt Rate 77 ml/min (>60); GFR (African American) 93 ML/MIN (>60); Globulin 2.6 g/dL (1.3-3.2); Glucose 120 mg/dl (74-100); HDL Cholesterol 39 mg/dl (40-60); Magnesium 1.9 mg/dl (1.6-2.3); Potassium 4.1 mmoL/L (3.5-5.1); Sodium 139 mmol/L (136-145); Triglycerides 242 mg/dl (30-150); VLDL Cholesterol 48 mg/dL (0-40)
[2022-09-17 20:40] LABS: Direct LDL Cholesterol 102.46 mg/dL (100-129)
[2022-09-17 20:48] LABS: 25-OH Vitamin D, Total 25.7 ng/mL (30-100)
[2022-09-17 21:19] LABS: Vitamin B12 401 pg/mL (239-931)
== END ==
PROVIDERS: PCP Physician Assistant; Visit Provider Physician Assistant
DX: G43.909 Migraine, unspecified, not intractable, without status migrainosus (principal); E55.9 Vitamin D deficiency, unspecified; E66.9 Obesity, unspecified; Z68.31 Body mass index [BMI] 31.0-31.9, adult; Z79.899 Other long term (current) drug therapy
CPT/HCPCS: 80053; 80061; 82306; 82607; 83735; 84443; 85025

== ENCOUNTER 2023-12-18 11:15 | Emergency (ER) | payer BC, SELFPAY ==
[2023-12-18 11:35] VITALS: BP 128/81; PULSE 70; RESP 20; TEMP 36.6; O2SAT 97; BMI 30.5
--- NOTE | 2023-12-18 11:40 | EXP.UTC ---
Discharge Plan Disposition Patient Disposition: Home, Self-Care Condition: Good Prescriptions Prescriptions: New guaifenesin [Mucinex] 600 mg tablet extended release 12hr 1,200 mg PO BID PRN (Reason: cough) Qty: 20 0RF azithromycin [Zithromax Z-Peter] 250 mg tablet See Rx Instructions .ROUTE .COMPLEX 5 Days Qty: 6 0RF Rx Instructions: For 250 mg dose pack: take 500 mg today (day 1), then 250 mg for 4 days (days 2-5) No Action omeprazole [Prilosec] 20 mg Capsule,Delayed Release(Dr/Ec) 20 mg PO DAILY Referrals Follow up/Referrals: Prem Su DO [Primary Care Provider] - See instructions Activity Restrictions/Add. Instructions Additional Instructions/Restrictions: *Monitor Temp, Over the counter Motrin or Tylenol as directed/as needed Tylenol every 4 hours and Motrin every 6 hours (as long as your family doctor has told you that you can take it) for fever or pain. and straight to ER if unable to lower temp less than 101.0 after medication given *Warm salt water gargles may help to soothe the throat *Throat Lozenges? *Warm fluids like tea with honey may help to soothe the throat? *Sleep elevated *Humidifier/Vaporizer Take medication as prescribed Your throat swab was sent for culture. Those results are typically sent to your primary care. Be sure to follow up in 2-3 days with your family doctor/primary care physician if no improvement so they can review those result and treat if necessary. If you don?t have a primary care doctor, I recommend you get one but in the mean time, you will have to return to a walk in clinic Follow up IMMEDIATELY for new or worsening symptoms or no Noticeable improvement over the next 48-72 hours. 911 for difficulty breathing or swallowing Clinical Impressions Clinical Impression: Bronchitis Sinusitis Qualifiers: Sinusitis location: unspecified location Chronicity: unspecified Qualified Code(s): J32.9 - Chronic sinusitis, unspecified Instructions Patient Instructions: DI for Sinusitis, Acute Bronchitis Print Language Print Language: Sami Discharge ED Provider: Jennifer Frias [facility] General Stated complaint: sore throat, cough Mode of Arrival: Ambulatory Source of Information: Patient Time Seen by Provider: 12/18/23 11:41 Description of Symptoms (Recalled from Triage Doc. by RN): COUGH FOR 3 WEEKS, CONGESTION, WHITE SPOTS IN BACK OF THROAT HEENT Symptoms (Recalled from RN notes): Yes Resp Symptoms (Recalled from RN notes): Yes Skin Symptoms (Recalled from RN notes): No MS Symptoms (Recalled from RN notes): No Functional Status (Recalled from RN notes): wnl History of Present Illness Provider Complaint: Patient states that he has been sick about 3 weeks States he has been having cough that is productive at times, sore throat, ear was hurting but that is better now, pressure in his sinuses and drainage in the back of his throat States today he was still not feeling any better so he came in to get checked Related Data Home Medications ?Medication ?Instructions ?Recorded ?Confirmed omeprazole 20 mg capsule,delayed 20 mg PO DAILY GERD 02/19/22 12/18/23 release Previous Rx's ?Medication ?Instructions ?Recorded azithromycin 250 mg tablet See Rx Instructions PO .COMPLEX 5 12/18/23 (Zithromax Z-Peter) days #6 tabs guaifenesin 600 mg tablet, 1,200 mg (2 x 600 mg) PO BID PRN 12/18/23 extended release 12 hr (Mucinex) cough #20 tabs Allergies Allergy/AdvReac Type Severity Reaction Status Date / Time cefaclor [From Ceclor] Allergy Mild Verified 06/24/22 10:37 cefprozil [From Cefzil] Allergy Mild Verified 06/24/22 10:37 Penicillins Allergy Mild Verified 06/24/22 10:37 benzonatate AdvReac Severe shortness Verified 06/26/22 10:36 of breath Oral Steroids AdvReac Intermediate Nausea Uncoded 06/26/22 10:36 Worker's Comp Is this a Worker's Comp case?: No [facility] Disclaimer: The information contained in this section may have been updated after the patient was seen, as this information can be updated by other users. Medical History Anxiety Depression History of gastroesophageal reflux (GERD) Migraine Surgical History History of shoulder surgery History of tonsillectomy Social History Smoking Status: Never smoker alcohol intake: current alcohol intake frequency: holidays/special occasions only substance use type: denies use current occupational status: employed Travel in the last 8 weeks: None household members: family housing: house ROS Obtained: Yes All systems reviewed & no additional complaints except as documented and Yes Systems reviewed as appropriate & no additional complaints except as documented Constitutional Constitutional: Reports system reviewed and no additional complaints, except as documented, Reports as per HPI and Reports headache(s) ENT Ears, Nose, Mouth, and Throat: Reports system reviewed and no additional complaints, except as documented, Reports as per HPI, Reports headache(s), Reports sinus pain, Reports sinus pressure and Reports sore throat Cardiovascular Cardiovascular: Reports system reviewed and no additional complaints, except as documented and Reports as per HPI Respiratory Respiratory: Reports system reviewed and no additional complaints, except as documented, Reports as per HPI, Reports chest congestion and Reports cough Gastrointestinal Gastrointestingal: Reports system reviewed and no additional complaints, except as documented and as per HPI Neurologic Neurologic: Reports headache(s) Physical Exam General General appearance: alert and in no apparent distress ENT ENT exam: Present mucous membranes moist Expanded ENT Exam Nose exam: Present sinus tenderness Throat exam: Present other (Pharyngeal erythema noted with PND) Respiratory Respiratory exam: Present normal lung sounds bilaterally; Absent respiratory distress or wheezes Cardiovascular Cardiovascular exam: Present regular rate, normal rhythm and normal heart sounds Abdominal Exam Abdominal exam: Present soft and normal bowel sounds; Absent distention or tenderness Neurological Exam Neurological exam: Present alert, oriented X3 and normal gait Medical Decision Making Medical Records Screening: Per USPSTF and CDC recommendations, given the prevalence of disease in our region, it is our hospital?s policy to screen for HIV and viral Hepatitis for all patients aged 18 and over and those with ongoing risk factors. Nick Inquiry Pt receiving controlled substance: No Nick was queried for this patient: No Vital Signs: 12/18/23 11:35 Temperature 97.8 F Temperature Source Oral Pulse Rate [Left Brachial] 70 Respiratory Rate 20 Blood Pressure [Left Arm] 128/81 Blood Pressure Mean [Left Arm] 96 02 Sat by Pulse Oximetry 97 Lab Data Lab results reviewed: Yes I reviewed the patient's lab results.
[2023-12-18 11:49] LABS: UTC Strep Screen (Rapid) Negative (Negative)
[2023-12-18 11:56] VITALS: BP 128/81; PULSE 70; RESP 20; TEMP 36.6; O2SAT 97
== END 2023-12-18 12:00 | disposition home or self-care (01) ==
PROVIDERS: Emergency Provider Nurse Practitioner; PCP Internal Medicine
DX: J20.9 Acute bronchitis, unspecified (principal); J01.90 Acute sinusitis, unspecified; R07.0 Pain in throat
CPT/HCPCS: 87880; 99212; 99214; G0463

== ENCOUNTER 2024-01-19 14:46 | Outpatient (CLI) | payer BC, SELFPAY ==
--- NOTE | 2024-01-19 14:59 | XR_ITS ---
PROCEDURE INFORMATION: Exam: XR Lumbosacral Spine Exam date and time: 01/19/2024 3:01 PM Age: 33 years old Clinical indication: Low back pain; Additional info: Pain x 1 day, no known trauma TECHNIQUE: Imaging protocol: Radiologic exam of the lumbosacral spine. Views: 4 or 5 views. COMPARISON: CT ABDOMEN PELVIS W CON 11/21/2018 2:48 PM FINDINGS: Bones/joints: No acute fracture or malalignment. No significant degenerative change. Soft tissues: Unremarkable. Other findings: 4 mm punctate calcification projecting over the left renal inferior pole most consistent with calculus seen on CT. IMPRESSION: 1. No acute fracture or malalignment. 2. Punctate left nephrolithiasis.
== END 2024-01-19 23:59 | disposition home or self-care (01) ==
LOC: RAD 14:48
PROVIDERS: PCP Family Medicine; Visit Provider Family Medicine
DX: M54.50 Low back pain, unspecified (principal)
CPT/HCPCS: 72110

== ENCOUNTER 2024-03-27 13:16 | Emergency (ER) | payer BC, SELFPAY ==
--- NOTE | 2024-03-27 14:26 | EXP.UTC ---
Discharge Plan Disposition Patient Disposition: Home, Self-Care Condition: Good Prescriptions Prescriptions: New azithromycin [Zithromax] 250 mg tablet 250 mg PO UD DOSE PK Qty: 6 0RF Rx Instructions: Take two (2) tablets today, then one (1) tablet days #2 thru #5 [id number] [Bromfed DM] 2-30-10 mg/5 mL Syrup 5 ml PO Q6H PRN (Reason: Cough) Qty: 240 0RF No Action guaifenesin [Mucinex] 600 mg tablet extended release 12hr 1,200 mg PO BID PRN (Reason: cough) Qty: 20 0RF azithromycin [Zithromax Z-Peter] 250 mg tablet See Rx Instructions .ROUTE .COMPLEX 5 Days Qty: 6 0RF Rx Instructions: For 250 mg dose pack: take 500 mg today (day 1), then 250 mg for 4 days (days 2-5) omeprazole [Prilosec] 20 mg Capsule,Delayed Release(Dr/Ec) 20 mg PO DAILY Referrals Follow up/Referrals: Hilary Reardon MD [Primary Care Provider] - See instructions Activity Restrictions/Add. Instructions Additional Instructions/Restrictions: Drink plenty of fluids. Take tylenol or ibuprofen for pain or fever. Take the medications as directed. Follow up with your regular doctor. GO TO THE ER FOR ANY WORSENING SYMPTOMS Clinical Impressions Clinical Impression: Bronchitis Sinusitis Qualifiers: Sinusitis location: unspecified location Chronicity: unspecified Qualified Code(s): J32.9 - Chronic sinusitis, unspecified Stand Alone Forms Stand Alone Forms: Work/School Release Instructions Patient Instructions: Sinusitis, DI for Sinusitis Print Language Print Language: Peruvian Discharge ED Provider: Mata Pérez [facility] General Stated complaint: sore throat, cough, chest congest, chills Time Seen by Provider: 03/27/24 14:26 Related Data Home Medications ?Medication ?Instructions ?Recorded ?Confirmed omeprazole 20 mg capsule,delayed 20 mg PO DAILY GERD 02/19/22 03/27/24 release Previous Rx's ?Medication ?Instructions ?Recorded azithromycin 250 mg tablet See Rx Instructions PO .COMPLEX 5 12/18/23 (Zithromax Z-Peter) days #6 tabs guaifenesin 600 mg tablet, 1,200 mg (2 x 600 mg) PO BID PRN 09/19/24 extended release 12 hr (Mucinex) cough #20 tabs azithromycin 250 mg tablet 250 mg PO UD DOSE PK #6 tabs 03/27/24 (Zithromax) [id number]-[id number] 5 ml PO Q6H PRN Cough #240 mL 03/27/24 2 mg-30 mg-10 mg/5 mL oral syrup (Bromfed DM) Allergies Allergy/AdvReac Type Severity Reaction Status Date / Time cefaclor (From Ceclor) Allergy Mild Verified 06/24/22 10:37 cefprozil (From Cefzil) Allergy Mild Verified 06/24/22 10:37 Penicillins Allergy Mild Verified 06/24/22 10:37 benzonatate AdvReac Severe shortness Verified 06/26/22 10:36 of breath Oral Steroids AdvReac Intermediate Nausea Uncoded 06/26/22 10:36 PFSH PFSH Disclaimer: The information contained in this section may have been updated after the patient was seen, as this information can be updated by other users. Medical History Anxiety Depression History of gastroesophageal reflux (GERD) Migraine Surgical History History of shoulder surgery History of tonsillectomy Social History Smoking Status: Never smoker alcohol intake: current alcohol intake frequency: holidays/special occasions only substance use type: denies use current occupational status: employed Travel in the last 8 weeks: None household members: family housing: house Have you lived/traveled outside [place] in past 30 days?: No Contact w/someone who lives/traveled outside US past 30 days?: No Exposure to someone with infectious disease in past 14 days?: Yes Do you have a fever (greater than 100.4 F or 38 C)?: No Have you tested positive for COVID-19: No Exposed to someone with COVID-19 in past 14 days?: Yes Do you have a sore throat?: Yes Do you have a cough?: Yes Do you have any weakness?: Yes Do you have any diarrhea?: No Are you experiencing any unusual bleeding?: No Do you have any muscle aches/pain?: Yes Do you have any abdominal pain?: No Are you experiencing loss of taste or smell?: No ROS Obtained: Yes All systems reviewed & no additional complaints except as documented Constitutional Constitutional: Reports poor appetite Eyes Eyes: Reports system reviewed and no additional complaints, except as documented ENT Ears, Nose, Mouth, and Throat: Reports as per HPI Cardiovascular Cardiovascular: Reports system reviewed and no additional complaints, except as documented and Denies chest pain Respiratory Respiratory: Denies shortness of breath, Reports chest congestion, Reports cough, Denies stridor and Denies wheezing Gastrointestinal Gastrointestingal: Reports system reviewed and no additional complaints, except as documented; Denies abdominal pain, diarrhea or vomiting Musculoskeletal Musculoskeletal: Reports system reviewed and no additional complaints, except as documented and Denies arthralgias Integumentary/Breasts Skin/Breast: Reports system reviewed and no additional complaints, except as documented and Denies rash Neurologic Neurologic: Denies paresthesias Allergic/Immunologic Allergic/Immunologic: Denies wheezing Physical Exam General General appearance: alert and in no apparent distress Eye Eye exam: Present normal appearance, PERRL and EOMI ENT ENT exam: Present mucous membranes moist and normal external ear exam Expanded ENT Exam External ear exam: Present normal external inspection TM/Canal exam: Bilateral TM: erythema and bulging Nose exam: Absent sinus tenderness Nasal speculum exam: Bilateral: normal Mouth exam: Present normal external inspection; Absent drooling Teeth exam: Present normal inspection Throat exam: Present tonsillar erythema and tonsillomegaly Neck Neck exam: Present normal inspection, full ROM and trachea midline; Absent tenderness, lymphadenopathy or thyromegaly Chest Chest inspection: Present normal inspection and symmetric chest wall rise; Absent tenderness or rash Respiratory Respiratory exam: Present normal lung sounds bilaterally; Absent respiratory distress, wheezes, stridor or accessory muscle use Cardiovascular Cardiovascular exam: Present regular rate, normal rhythm and normal heart sounds Abdominal Exam Abdominal exam: Present soft; Absent distention, tenderness, guarding, rebound or rigidity Extremities Exam Extremities exam: Present normal inspection, full ROM and normal capillary refill; Absent tenderness or calf tenderness Back Exam Back exam: Present normal inspection and full ROM; Absent tenderness Neurological Exam Neurological exam: Present alert and oriented X3 Psychiatric Psychiatric exam: Present normal affect and normal mood Skin Skin exam: Present warm, dry, intact and normal color Lymphatic Lymphatic Findings: no adenopathy Medical Decision Making Medical Records Medical records reviewed: No I reviewed the patient's medical records. Screening: Per USPSTF and CDC recommendations, given the prevalence of disease in our region, it is our hospital?s policy to screen for HIV and viral Hepatitis for all patients aged 18 and over and those with ongoing risk factors. Nick Inquiry Pt receiving controlled substance: No Lab Data Lab results reviewed: Yes I reviewed the patient's lab results.
[2024-03-27 14:30] VITALS: BP 119/77; PULSE 72; RESP 20; TEMP 36.6; O2SAT 97; BMI 31.8
[2024-03-27 14:39] LABS: UTC Influenza A Antigen Negative (Negative); UTC Influenza B Antigen Negative (Negative); UTC Strep Screen (Rapid) Negative (Negative)
[2024-03-27 15:26] VITALS: BP 119/77; PULSE 72; RESP 18; TEMP 36.6
[2024-03-27 15:34] LABS: Coronavirus 19, PCR Not Detected (NotDetected); Influenza A, PCR Not Detected (NotDetected); Influenza B, PCR Not Detected (NotDetected); Respiratory Syncytial Virus Not Detected (NotDetected)
[2024-03-27 17:02] LABS: Human Rhinovirus Detected (NotDetected)
== END 2024-03-27 15:47 | disposition home or self-care (01) ==
PROVIDERS: Emergency Provider Nurse Practitioner Family; PCP Family Medicine
DX: J20.9 Acute bronchitis, unspecified (principal); J32.9 Chronic sinusitis, unspecified
CPT/HCPCS: 87631; 87804; 87880; 99213; G0381